=== PATIENT | male | born 2000 | race African-American/Black ===

== ENCOUNTER 2019-09-23 11:30 | Emergency (ER) | payer OTHER ==
[~2019-09-23] VITALS: Ht 177.8 cm; Wt 69.8 kg
[2019-09-23] MEDS ORDERED: IBUPROFEN 600600 M1 PO (14:40)
[2019-09-23 15:08] VITALS: BP 127/68
== END 2019-09-23 15:11 | disposition home or self-care (01) ==
LOC: ER 11:30
DX: R07.89 Other chest pain (principal); F31.9 Bipolar disorder, unspecified

== ENCOUNTER 2021-01-05 17:16 | Emergency (ER) | payer OTHER ==
[~2021-01-05] VITALS: Ht 175.3 cm; Wt 66.7 kg
[~2021-01-05 17:16] MED LIST: IBUPROFEN 600600 M1 PO
[2021-01-05 18:11] LABS: URINE BILIRUBIN NEGATIVE (Negative); URINE BLOOD NEGATIVE (Negative); URINE CLARITY CLEAR; URINE COLOR YELLOW; URINE GLUCOSE-RANDOM* NEGATIVE (Negative); URINE KETONES 1+ (Negative); URINE LEUKOCYTES-REFLEX NEGATIVE (Negative); URINE NITRITE-REFLEX NEGATIVE (Negative); URINE PROTEIN (DIPSTICK) NEGATIVE (Negative)
[2021-01-05 18:13] LABS: SSA (PROTEIN CONFIRMATORY) NEGATIVE (Negative)
[2021-01-05 18:52] LABS: ABSOLUTE NEUTROPHILS 2.2 thou/uL (1.4-8.2); BASOPHILS 0.5 % (0.0-2.0); EOSINOPHILS 2.3 % (0.0-3.0); HEMATOCRIT 42.6 % (42.0-52.0); HEMOGLOBIN 13.9 gm/dL (14.0-18.0); LYMPHOCYTES 32.7 % (24.0-44.0); MCH 30.5 pg (26.0-34.0); MCHC 32.7 g/dL (28.0-37.0); MCV 93.3 fL (80.0-100.0); MONOCYTES 8.5 % (1.0-8.0); PLATELET COUNT 193 thou/uL (150-400); RBC 4.57 mil/uL (4.50-6.00); RDW 12.6 % (10.5-14.5); WBC 3.9 thou/uL (4.0-11.0)
[2021-01-05 18:55] LABS: CALCIUM 8.8 mg/dL (8.5-10.1); CREATININE 1.1 mg/dL (0.7-1.3); POTASSIUM 3.6 mmol/L (3.5-5.1)
[2021-01-05 19:02] LABS: ALBUMIN 4.1 g/dL (3.4-5.0); TOTAL BILIRUBIN 0.8 mg/dL (0.2-1.0); TOTAL PROTEIN 7.1 g/dL (6.4-8.2)
[2021-01-05] MEDS ORDERED: LEVSIN0.125 MG PO (19:51)
[2021-01-05] MEDS ORDERED: OMEPRAZOLE 20 M20 M1 PO (19:51)
[2021-01-05] MEDS ORDERED: CORTISONE60 GM TOP (19:57)
[2021-01-05 20:04] VITALS: BP 132/64
[2021-01-08 19:07] LABS: SYPHILIS AB Non Reactive (Non Reactive)
== END 2021-01-05 20:04 | disposition home or self-care (01) ==
LOC: ER 17:16
PROVIDERS: Physician Assistant
DX: R10.13 Epigastric pain (principal); R11.0 Nausea; Z20.2 Contact with and (suspected) exposure to infections with a predominantly sexual mode of transmission; Z79.1 Long term (current) use of non-steroidal anti-inflammatories (NSAID)

== ENCOUNTER 2021-10-25 17:42 | Emergency (ER) | payer OTHER ==
[~2021-10-25] VITALS: Ht 180.3 cm; Wt 68.0 kg
[~2021-10-25 17:42] MED LIST changes: +CORTISONE60 GM TOP; +LEVSIN0.125 MG PO; +OMEPRAZOLE 20 M20 M1 PO
[2021-10-25 17:44] VITALS: BP 124/85
== END 2021-10-25 19:16 | disposition home or self-care (01) ==
LOC: ER 17:42
DX: K13.29 Other disturbances of oral epithelium, including tongue (principal); Z20.822 Contact with and (suspected) exposure to COVID-19; Z79.899 Other long term (current) drug therapy